=== PATIENT | male | born 1955 | race Caucasian/White ===

== ENCOUNTER 2018-10-05 13:30 | Outpatient (CLI) | payer OTHER | END 2018-10-05 13:31 | disposition critical access hospital (66) | LOC: EMS 13:30 | PROVIDERS: ATTEND Surgery | DX: S21.102A Unspecified open wound of left front wall of thorax without penetration into thoracic cavity, initial encounter (principal); W34.00XA Accidental discharge from unspecified firearms or gun, initial encounter; Y92.008 Other place in unspecified non-institutional (private) residence as the place of occurrence of the external cause | CPT/HCPCS: A0425; A0433 ==

== ENCOUNTER 2018-10-05 13:54 | Emergency (ER) | payer OTHER ==
[2018-10-05] MEDS ORDERED: EPINEPHrine ABBOJECT 1 MG/10 ML SYRINGE IVP STA (14:07)
[2018-10-05] MEDS ORDERED: TRANEXAMIC ACID 1,000 MG in SODIUM CHLORIDE 0.9% 100ML 100 ML IV STA (14:07)
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
== END 2018-10-05 16:25 | disposition expired ==
LOC: ED 13:54
DX: S26.99XA Other injury of heart, unspecified with or without hemopericardium, initial encounter (principal); S21.332A Puncture wound without foreign body of left front wall of thorax with penetration into thoracic cavity, initial encounter; I46.8 Cardiac arrest due to other underlying condition
CPT/HCPCS: 32100; 32551; 36430; 36556; 92950; 96365; 96375; 99285; G0390; P9016; 36680; 86850; 86900; 86901; 86920